=== PATIENT | female | born 1940 | race Caucasian/White ===

== ENCOUNTER 2018-06-23 13:02 | Emergency (ER) | payer OTHER ==
[~2018-06-23] VITALS: Ht 165.1 cm; Wt 58.5 kg
[~2018-06-23 13:02] MED LIST: CIPRO500 MG PO
[2018-06-23] MEDS ORDERED: LISINOPRIL-HCT1 EAC2 (13:54)
== END 2018-06-23 16:09 | disposition home or self-care (01) ==
LOC: ER 13:02
DX: N39.0 Urinary tract infection, site not specified (principal)

== ENCOUNTER → 2020-05-30 | Emergency (ER) | payer OTHER ==
[~2020-05-30] VITALS: Ht 162.6 cm; Wt 57.6 kg
[~2020-05-30] MED LIST changes: +ATORVASTATIN CA10 MG; +INTESTINEX680 M1 PO; +LISINOPRIL-HCT1 EAC2
== END | disposition home or self-care (01) ==
LOC: ER 06:00
DX: N39.0 Urinary tract infection, site not specified (principal); R39.15 Urgency of urination; B96.29 Other Escherichia coli [E. coli] as the cause of diseases classified elsewhere; R31.29 Other microscopic hematuria; Z03.818 Encounter for observation for suspected exposure to other biological agents ruled out

== ENCOUNTER → 2020-07-08 | Outpatient (CLI) | payer OTHER | END | disposition home or self-care (01) | LOC: OFIC 805 11:30 | PROVIDERS: ATTEND Otolaryngology | DX: D11.0 Benign neoplasm of parotid gland (principal) ==

== ENCOUNTER 2020-09-09 09:07 | Outpatient (CLI) | payer OTHER | END 2020-09-09 17:50 | disposition home or self-care (01) | LOC: OFIC 805 09:07 | PROVIDERS: ATTEND Otolaryngology | DX: D11.0 Benign neoplasm of parotid gland (principal) ==

== ENCOUNTER 2021-08-04 08:51 | Outpatient (CLI) | payer OTHER | END 2021-08-04 09:00 | disposition home or self-care (01) | LOC: TOM 08:51 | PROVIDERS: ATTEND General Practice | DX: G31.84 Mild cognitive impairment of uncertain or unknown etiology (principal) ==